=== PATIENT | female | born 1975 | race Caucasian/White ===

== ENCOUNTER 2017-03-28 16:32 | Emergency (ER) | payer OTHER ==
--- NOTE | ~2017-03-28 | ER ---
PATIENT'S NAME: DINH [facility] AGE: 41 Y [address] ROOM: [place] [id number] LOCATION: ED ADMIT DATE: 03/28/2017 ER/Outpatient Report DISCHARGE DATE: 03/28/2017 FAMILY PHYSICIAN: Physician, Unknown ATTENDING PHYSICIAN: Ward Larios Time of Arrival: 1633 hours. Time of Evaluation: 1633 hours. CHIEF COMPLAINT: Near syncopal episode. HISTORY OF PRESENT ILLNESS: The patient arrived per EMS. She had IV in her left hand. They did give her a liter of fluids en route and 4 mg of Zofran. 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 She states she tried to drink water throughout the route today but did not feel as though she drink enough. She has been nauseated, has not vomited. She has not had any chest pain or chest discomfort. Denies being short of breath. She has not had a cough. Denies any abdominal pain. She has not any change in her bowel or bladder pattern. ALLERGIES: NO KNOWN ALLERGIES. CURRENT MEDICATIONS: control. PAST MEDICAL HISTORY: None. PAST SURGICAL HISTORY: None. 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 SOCIAL HISTORY: She denies the use of tobacco or drugs. Does drink alcohol 1 to 2 drinks per day. PRIMARY PROVIDER: Dr. Quigley in [place]. REVIEW OF SYSTEMS: PATIENT'S NAME: DINH [facility] AGE: 41 Y [address] ROOM: [place] [address] LOCATION: ED ADMIT DATE: 03/28/2017 ER/Outpatient Report DISCHARGE DATE: 03/28/2017 FAMILY PHYSICIAN: Physician, Unknown ATTENDING PHYSICIAN: Ward Larios All negative other than those mentioned in the HPI. PHYSICAL EXAMINATION: VITAL SIGNS: She weighs 48.9 kg, blood pressure is 158/84, pulse of 80, respirations 20, temperature of 99.9 TemporalScanner, and O2 saturations 100% on room air. GENERAL: She is awake, alert, and oriented x4. SKIN: [place], warm, and dry. RESPIRATIONS: Even and nonlabored. Pupils are equal and reactive to light. Extraocular movement is intact. Oropharynx is clear. NECK: Supple. No lymphadenopathy. LUNGS: Lung sounds are clear throughout. HEART: Regular rate and rhythm. ABDOMEN: Soft and nondistended. Bowel sounds are present. EMERGENCY DEPARTMENT COURSE: The patient walked into the ER accompanied by EMS. Denied being dizzy or lightheaded at this time. She states she feels much better after the liter of fluids that was given en route. Lab work was drawn. CBC is within normal limits. Chem panel is within normal limits. She was given oral fluids and tolerated those without being nauseated. Did not vomit. IMPRESSION: Heat exhaustion. PLAN: Home, rest, fluids. Nonalcoholic. Rest in a cool environment. Tylenol as needed for discomfort. Follow up with her primary provider in 2 days. She is welcome to return to the ER as needed. She verbalized understanding. KAREN WISDOM APRN FOR MD YOUSIF OMER/sandra /[id number] d: 03/28/172007 t: 04/06/17 1034, OUTPATIENT REPORT
[2017-03-28 16:53] LABS: BASOPHIL % 0.4 %; EOSINOPHIL % 0.4 %; HEMATOCRIT 37.7 % (33.0-46.0); HEMOGLOBIN 12.6 g/dL (10.0-15.0); IMMATURE GRANULOCYTE % 0.2 %; LYMPHOCYTE % 18.5 %; MCH 32.7 pg (27.0-34.0); MCHC 33.4 gm/dL (32.0-36.5); MCV 97.9 fl (83.0-98.0); MONOCYTE # 0.3 K/uL (0.0-1.0); MONOCYTE % 6.2 %; MPV 9.9 fl (9.4-12.4); NEUTROPHIL % 74.3 %; NRBC % 0 /100WBC (0-0.00); PLATELET COUNT 288 K/uL (150-450); RBC 3.85 M/uL (3.50-5.50); RDW-CV 11.9 % (11.9-14.6); WBC 5.3 K/uL (4.0-11.0)
[2017-03-28 17:11] LABS: ALBUMIN 3.9 gm/dL (3.5-5.0); ALK PHOS 82 IU/L (33-138); ALT 31 IU/L (12-78); ANION GAP 12.9 (10.0-19.0); AST 30 IU/L (10-40); BLOOD UREA NITROGEN 9 mg/dL (6-24); CALCIUM 8.4 mg/dL (8.5-10.5); CHLORIDE 111 mMol/L (96-110); CO2 24 mMol/L (22-32); CREATININE 0.8 mg/dL (0.5-1.1); ESTIMATED GFR (MDRD EQUATION) > 60; POTASSIUM 3.9 mMol/L (3.7-5.1); SODIUM 144 mMol/L (135-145); TOTAL PROTEIN 6.9 g/dL (6.0-8.4)
== END 2017-03-28 17:22 | disposition disaster alternative care site (69) ==
LOC: GMED 16:32
PROVIDERS: Nurse Practitioner Family
DX: T67.5XXA Heat exhaustion, unspecified, initial encounter (principal); Z79.3 Long term (current) use of hormonal contraceptives

== ENCOUNTER → 2017-03-28 | Outpatient (CLI) | payer OTHER | END | disposition disaster alternative care site (69) | LOC: GAMB 15:56 | DX: T67.5XXA Heat exhaustion, unspecified, initial encounter (principal); R06.4 Hyperventilation; R42 Dizziness and giddiness; R29.0 Tetany; R11.0 Nausea; R20.0 Anesthesia of skin; R20.2 Paresthesia of skin | CPT/HCPCS: A0425; A0427; J2405; J7030 ==